=== PATIENT | female | born 1970 | race Caucasian/White ===

== ENCOUNTER 2021-11-12 18:15 | Emergency (ER) | payer OTHER ==
[2021-11-12] MEDS ORDERED: AMOX TR-K CLV1 EAC4 PO (19:11)
[2021-11-12] MEDS ORDERED: BACTRIM 400-801 EACH PO (20:45)
== END 2021-11-12 20:51 | disposition home or self-care (01) ==
LOC: ER1 18:15
DX: R04.0 Epistaxis (principal); I10 Essential (primary) hypertension; E11.9 Type 2 diabetes mellitus without complications; Z87.891 Personal history of nicotine dependence; Z88.5 Allergy status to narcotic agent
CPT/HCPCS: 30903; 99283; C9046

== ENCOUNTER 2021-11-13 04:38 | Emergency (ER) | payer OTHER ==
[~2021-11-13 04:38] MED LIST: AMOX TR-K CLV1 EAC4 PO; BACTRIM 400-801 EACH PO
== END 2021-11-13 06:35 | disposition home or self-care (01) ==
LOC: ER1 04:38
DX: R04.0 Epistaxis (principal); J45.909 Unspecified asthma, uncomplicated; E11.9 Type 2 diabetes mellitus without complications; Z88.5 Allergy status to narcotic agent; Z88.0 Allergy status to penicillin
CPT/HCPCS: 99283

== ENCOUNTER 2021-11-13 14:04 | Emergency (ER) | payer OTHER | END 2021-11-13 16:05 | disposition home or self-care (01) | LOC: ER1 14:04 | DX: Z48.00 Encounter for change or removal of nonsurgical wound dressing (principal); E11.9 Type 2 diabetes mellitus without complications; I10 Essential (primary) hypertension; J45.909 Unspecified asthma, uncomplicated; Z90.49 Acquired absence of other specified parts of digestive tract | CPT/HCPCS: 99282 ==